=== PATIENT | female | born 1990 | race Two or more races ===

== ENCOUNTER 2019-03-07 18:14 | Emergency (ER) | payer SELFPAY ==
--- NOTE | 2019-03-07 18:56 | ER Document Report ---
ED Medical Screen (RME) - General Chief Complaint: Vaginal Pain Stated Complaint: VAGINAL DISCOMFORT Time Seen by Provider: 03/07/19 18:49 Notes: 28-year-old female with chief complaint of vaginal pain x4 days. She says that she has what she thinks is a cyst that runs from her labia down into the perineal area. She has no fevers or chills, no nausea or vomiting. She has associated dysuria and urinary frequency. She also has abnormal vaginal discharge described as white and "weird" smelling. No abdominal pain. I have greeted and performed a rapid initial assessment of this patient. A comprehensive ED assessment and evaluation of the patient, analysis of test results and completion of medical decision making process will be conducted by an additional ED providers. TRAVEL OUTSIDE OF THE [place] IN LAST 30 DAYS: No - Related Data Allergies/Adverse Reactions: No Known Allergies Allergy (Verified 03/07/19 18:15) Physical Exam - Vital signs Vitals: Temp Pulse Resp BP Pulse Ox 98.2 F 106 H 18 139/82 H 98 03/07/19 18:24 03/07/19 18:24 03/07/19 18:24 03/07/19 18:24 03/07/19 18:24 - Notes Notes: PHYSICAL EXAMINATION: Reviewed vital signs and charting by RN GENERAL: Alert, interacts well. No acute distress. HEAD: Normocephalic, atraumatic. EYES: Pupils equal and round. Extraocular movements intact. ENT: Oral mucosa moist, tongue midline. ABDOMEN: Deferred in triage : Deferred in triage EXTREMITIES: Moves all 4 extremities spontaneously. No edema, No cyanosis. PSYCH: Normal affect, normal mood. SKIN: Warm, dry, normal turgor. No rashes or lesions noted. Course - Vital Signs Vital signs: Temp Pulse Resp BP Pulse Ox 98.2 F 106 H 18 139/82 H 98 03/07/19 18:24 03/07/19 18:24 03/07/19 18:24 03/07/19 18:24 03/07/19 18:24
[2019-03-07] MEDS ORDERED: HYDROCODONE/ACETAMINOPHEN 5-325 MG TABLET PO ONE (20:05)
[2019-03-07 21:13] LABS: CHLAM PCR NOT DETECTED (NOT DETECT)
[2019-03-07] MEDS ORDERED: HYDROMORPHONE HCL INJ/PF 2 MG/ML AMPULE IM ONE (22:20)
[2019-03-07] MEDS ORDERED: LIDOCAINE 2% INJ (20 MG/ML) 20 ML MDV INJ ONE (22:21)
[2019-03-07] MEDS ORDERED: HYDROCODONE/ACETAMINOPHEN 5-325 MG (6 TAB/ER DISP) PO PRN (23:45)
[2019-03-07] MEDS ORDERED: CEPHALEXIN 500 MG CAPSULE PO ONE (23:45)
--- NOTE | 2019-03-07 23:51 | ER Document Report ---
ED General - General Chief Complaint: Vaginal Pain Stated Complaint: VAGINAL DISCOMFORT Time Seen by Provider: 03/07/19 18:49 Primary Care Provider: REED SUÁREZ MD [ACTIVE STAFF] - 03/09/19 Notes: Patient is a pleasant 28-year-old female presents with complaint of swelling in the vaginal area. She says started 3 days ago but has become worse and now the pain is intolerable. No fevers. No vomiting. No abnormal discharge. No abnormal vaginal bleeding. No other complaints at this time. TRAVEL OUTSIDE OF THE [place] IN LAST 30 DAYS: No - Related Data Allergies/Adverse Reactions: No Known Allergies Allergy (Verified 03/07/19 18:15) Past Medical History - Social History Smoking Status: Never Smoker Frequency of alcohol use: None Drug Abuse: None Family History: Reviewed & Not Pertinent Patient has suicidal ideation: No Patient has homicidal ideation: No Renal/ Medical History: Denies: Hx Peritoneal Dialysis Past Surgical History: Reports: Hx Cholecystectomy Review of Systems - Review of Systems Notes: My Normal Review Basic REVIEW OF SYSTEMS: CONSTITUTIONAL : Denies fever, chills, or sweats. Denies recent illness. GASTROINTESTINAL: Denies abdominal pain. Denies nausea, vomiting, or diarrhea. GENITOURINARY: Denies difficulty urinating, painful urination, burning, frequency, or blood in urine. FEMALE GENITOURINARY: Swelling to left vaginal labia SKIN: Denies rash or skin lesions. HEMATOLOGIC : Denies easy bruising or bleeding. ALL OTHER SYSTEMS REVIEWED AND NEGATIVE. Physical Exam - Vital signs Vitals: Temp Pulse Resp BP Pulse Ox 98.2 F 106 H 18 139/82 H 98 03/07/19 18:24 03/07/19 18:24 03/07/19 18:24 03/07/19 18:24 03/07/19 18:24 - Notes Notes: General Appearance: Well nourished, alert, cooperative, no acute distress, moderate to severe obvious discomfort. Vitals: reviewed, See vital signs table. Eyes: PERRL, EOMI, Conjuctiva clear Pelvic exam: Pelvic exam performed with Yaneth Handley, at bedside. Patient has some left labial swelling and does have a firm knot to palpation along the inside of the left labia minora consistent with Bartholin gland cyst. No spreading redness. No surrounding cellulitis. Skin: warm, dry, appropriate color, no rash Neuro: speech clear, oriented x 3, normal affect, responds appropriately to questions. Course - Re-evaluation Re-evalutation: 03/07/19 23:55 Patient's pain was intractable due to the bartholin galnd cyst. I therefore performed a small incision. I was able to drain fluid from the cyst and swelling went down and this provided patient some relief. The area is too small to pack at this time. I did inform the patient understands that this swelling will recur and that she needs [facility] and possible marsupialization if they feel that this is needed during her evaluation. I encouraged her return to ER immediately if she has spreading redness or swelling, fevers, or if she feels that she is worsening in any way. I informed her no sexual activity. Patient agrees with plan and will be discharged home. Dictation of this chart was performed using voice recognition software; therefore, there may be some unintended grammatical errors. - Vital Signs Vital signs: Temp Pulse Resp BP Pulse Ox 98.2 F 106 H 18 139/82 H 98 03/07/19 18:24 03/07/19 18:24 03/07/19 18:24 03/07/19 18:24 03/07/19 18:24 Procedures - Incision and Drainage left labia Type: Simple Anesthetic type: 1% Lidocaine mL's of anesthetic: 1 Blade size: 11 I&D procedure: Betadine prep applied Incision Method: Incision made by scalpel Amount/type of drainage: 1ml of blood tinged fluid Discharge - Discharge Clinical Impression: Bartholin gland cyst Condition: Good Disposition: HOME, SELF-CARE Additional Instructions: We have incised and drained the bartholin cyst. You still may need a procedure called marsupialization to make sure the bartholin gland does not occlude and swell again. Please follow up with the Internal Controls Analyst, Dr. Suárez, on Saturday for reevaluation and they will reevaluate you and determine if this needs to be performed. Please have a low threshold to return to the ER if you have fevers, increasing swelling, worsening pain, or feel that you are worsening in any way. I have given you a bottle of a medication called [place]. Please be aware that [place] does have Tylenol (acetaminophen) in it. Please make sure you do not take more than 4000 mg of acetaminophen a day. Do not drive or care for children after you have taken this medication they will make you sleepy and sometimes impair judgment. Prescriptions: Cephalexin Monohydrate [Keflex 500 mg Capsule] 500 mg PO Q6H 5 Days #28 capsule Hydrocodone/Acetaminophen [[place] 5-325 mg Tablet] 1 tab PO Q4 PRN #16 tablet PRN Reason: For Breakthrough Pain Forms: Return to Work Referrals: REED SUÁREZ MD [ACTIVE STAFF] - 03/09/19
[2019-03-08 00:35] VITALS: BP 122/73
== END 2019-03-08 00:39 | disposition home or self-care (01) ==
LOC: ER 18:14
DX: N75.0 Cyst of Bartholin's gland (principal)
CPT/HCPCS: 99283; 96372; 87491; 87591; 56420; J1170

== ENCOUNTER 2019-03-09 11:34 | Emergency (ER) | payer SELFPAY ==
[2019-03-09 12:04] VITALS: BP 108/67
[2019-03-09] MEDS ORDERED: OXYCODONE-ACETAMINOPHEN 5-325 MG TABLET PO ONE (14:38)
--- NOTE | 2019-03-09 14:39 | ER Document Report ---
ED Medical Screen (RME) - General Chief Complaint: Vaginal Pain Stated Complaint: POSSIBLE ABSCESS/VAGINAL Time Seen by Provider: 03/09/19 14:35 Notes: Patient is a 28-year-old female presents to the emergency department for pathology and gland cyst. Patient states she was here on 03/07/2019 to have the cyst drained. States today she is noticed more redness, more drainage and increased pain. Patient states she was given an antibiotic and hydrocodone which she states is not working. States last time she took the hydrocodone was around 830 this morning. Patient is denying any fevers. GENERAL: Alert, interacts well. Does appear to be in distress with grimace on her face. Genitalia exam deferred as patient is in triage. I have greeted and performed a rapid initial assessment of this patient. A comprehensive ED assessment and evaluation of the patient, analysis of test results and completion of the medical decision making process will be conducted by additional ED providers. I have specifically instructed the patient or family members with the patient to immediately return to any nursing staff should anything change in the patient's condition or with their chief complaint. This medical record was dictated with voice recognizing software. There may be grammatical, syntax errors that are unintended. TRAVEL OUTSIDE OF THE [place] IN LAST 30 DAYS: No - Related Data Allergies/Adverse Reactions: No Known Allergies Allergy (Verified 03/09/19 11:38) Past Medical History Renal/ Medical History: Denies: Hx Peritoneal Dialysis Past Surgical History: Reports: Hx Cholecystectomy Physical Exam - Vital signs Vitals: Temp Pulse Resp BP Pulse Ox 98.3 F 80 16 108/67 99 03/09/19 12:03 03/09/19 12:03 03/09/19 12:03 03/09/19 12:03 03/09/19 12:03 Course - Vital Signs Vital signs: Temp Pulse Resp BP Pulse Ox 98.3 F 80 16 108/67 99 03/09/19 12:03 03/09/19 12:03 03/09/19 12:03 03/09/19 12:03 03/09/19 12:03
== END 2019-03-09 16:33 | disposition left against medical advice (07) ==
LOC: ER 11:34
DX: R10.2 Pelvic and perineal pain (principal); Z79.899 Other long term (current) drug therapy
CPT/HCPCS: 99281

== ENCOUNTER → 2020-05-04 | Outpatient (CLI) | payer MEDICAID ==
[2020-05-04 10:20] LABS: ABSOLUTE EOSINOPHILS # (AUTO) 0.2 10^3/uL (0.0-0.6); ABSOLUTE LYMPHOCYTES (AUTO) 1.6 10^3/uL (0.5-4.7); ABSOLUTE MONOCYTES (AUTO) 0.5 10^3/uL (0.1-1.4); ABSOLUTE NEUT (AUTO) 3.3 10^3/uL (1.7-8.2); BASOPHILS % (AUTO) 0.5 % (0-2); EOSINOPHILS % (AUTO) 2.9 % (0-6); HEMATOCRIT 43.3 % (36.0-47.0); HEMOGLOBIN 14.8 g/dL (12.0-15.5); LYMPHOCYTES % (AUTO) 28.7 % (13-45); MEAN CORPUSCULAR HEMOGLOBIN 30.6 pg (27.0-33.4); MEAN CORPUSCULAR HGB CONC 34.3 g/dL (32.0-36.0); MEAN CORPUSCULAR VOLUME 89 fl (80-97); MONOCYTES % (AUTO) 9.7 % (3-13); PLATELET COUNT 241 10^3/uL (150-450); RED BLOOD COUNT 4.85 10^6/uL (3.72-5.28); RED CELL DISTRIBUTION WIDTH 12.7 % (11.5-14.0); SEGMENTED NEUTROPHILS % (AUTO) 58.2 % (42-78); TOTAL CELLS COUNTED % (AUTO) 100 %; WHITE BLOOD COUNT 5.7 10^3/uL (4.0-10.5)
[2020-05-04 10:47] LABS: ALBUMIN 4.7 g/dL (3.5-5.0); ALKALINE PHOSPHATASE 92 U/L (38-126); ANION GAP 9 (5-19); ASPARTATE AMINO TRANSFERASE 30 U/L (14-36); BILIRUBIN,TOTAL 0.9 mg/dL (0.2-1.3); BLOOD UREA NITROGEN 14 mg/dL (7-20); C-REACTIVE PROTEIN 5.3 mg/L (<10.0); CALCIUM 9.6 mg/dL (8.4-10.2); CARBON DIOXIDE 30 mmol/L (22-30); CHLORIDE 99 mmol/L (98-107); GLUCOSE 89 mg/dL (75-110); POTASSIUM 3.8 mmol/L (3.6-5.0); TOTAL PROTEIN 7.3 g/dL (6.3-8.2)
[2020-05-04 11:00] LABS: ERYTHROCYTE SEDIMENTATION RATE 11 mm/hr (0-20)
--- NOTE | 2020-05-05 09:42 | EKG REPORT ---
SEVERITY:- BORDERLINE ECG - SINUS RHYTHM PROBABLE LEFT ATRIAL ABNORMALITY : Confirmed by: Jasmin Peña 05-May-2020 09:42:02
== END ==
LOC: OD 09:32
PROVIDERS: ATTEND Nurse Practitioner Family
DX: R07.9 Chest pain, unspecified (principal); R53.83 Other fatigue; M32.9 Systemic lupus erythematosus, unspecified
CPT/HCPCS: 36415; 80053; 84443; 85025; 85652; 86140; 93005; 93010

== ENCOUNTER 2020-09-03 10:57 | Emergency (ER) | payer MEDICAID ==
--- NOTE | 2020-09-03 12:01 | ER Document Report ---
HPI - HPI Patient complains to provider of: Abscess Time Seen by Provider: 09/03/20 11:54 Onset: Yesterday Onset/Duration: Gradual Quality of pain: Achy Pain Level: 3 Context: Patient complains of abscess to the left labia that started to develop yesterday. Patient states area is tender to palpation. Patient denies any fever or drainage. Associated Symptoms: None Exacerbated by: Movement Relieved by: Denies Similar symptoms previously: Yes Recently seen / treated by doctor: No - ROS ROS below otherwise negative: Yes Systems Reviewed and Negative: Yes All other systems reviewed and negative - CONSTITUTIONAL Constitutional: DENIES: Fever, Chills - GASTROINTESTINAL Gastrointestinal: DENIES: Nausea, Patient vomiting - URINARY Urinary: DENIES: Dysuria - REPRODUCTIVE Reproductive: DENIES: : - MUSCULOSKELETAL Musculoskeletal: DENIES: Extremity pain - DERM Skin Color: Normal Notes: Painful lump to left labia Past Medical History - General Information source: Patient - Social History Smoking Status: Never Smoker Frequency of alcohol use: None Drug Abuse: None Occupation: Retail Lives with: Family Family History: Reviewed & Not Pertinent - Medical History Medical History: Other - Lupus Renal/ Medical History: Denies: Hx Peritoneal Dialysis Past Surgical History: Reports: Hx Cholecystectomy Vertical Provider Document - CONSTITUTIONAL Agree With Documented VS: Yes Exam Limitations: No Limitations General Appearance: WD/WN, No Apparent Distress - INFECTION CONTROL TRAVEL OUTSIDE OF THE [place] IN LAST 30 DAYS: No - HEENT HEENT: Atraumatic, Normocephalic - NECK Neck: Normal Inspection - RESPIRATORY Respiratory: Breath Sounds Normal, No Respiratory Distress - CARDIOVASCULAR Cardiovascular: Regular Rate, Regular Rhythm - REPRODUCTIVE Notes: Patient with a tender indurated area to the left Bartholin gland, no fluctuance, nothing that warrants drainage at this time. - BACK Back: Normal Inspection - MUSCULOSKELETAL/EXTREMETIES Musculoskeletal/Extremeties: MAEW - NEURO Level of Consciousness: Awake, Alert, Appropriate Motor/Sensory: No Motor Deficit - DERM Integumentary: Warm, Dry Course - Re-evaluation Re-evalutation: 09/03/20 12:26 Patient encouraged to use warm sitz bath's and to take antibiotics as prescribed. Patient encouraged to follow-up with a wharf tender for any persistent problems. Discussed worsening signs or symptoms that patient should return immediately for. Patient verbalized understanding and is agreeable discharge plan of care. - Vital Signs Vital signs: Temp Pulse Resp BP Pulse Ox 97.7 F 91 123/77 96 09/03/20 11:04 09/03/20 11:04 09/03/20 11:04 09/03/20 11:04 - Laboratory Results Critical Laboratory Results Reviewed: No Critical Results - Radiology Results Critical Radiology Results Reviewed: No Critical Results Discharge - Discharge Clinical Impression: Bartholin's gland infection Condition: Stable Disposition: HOME, SELF-CARE Instructions: Bartholin Gland Cyst or Abscess ([facility]), Trimethoprim-Sulfa ([facility]) Additional Instructions: Return immediately for any new or worsening symptoms Followup with your primary care provider, call tomorrow to make a followup appointment Use warm compresses or soak in warm water to help with resolution Prescriptions: Sulfamethoxazole/Trimethoprim [Bactrim Ds Tablet] 1 each PO BID #20 tablet Naproxen [Naprosyn 250 Nmg Tablet] 1 tab PO BID #14 tablet Forms: Return to Work Referrals: EARLE HERCULES NP [NO LOCAL MD] - Follow up as needed [facility] [Provider Group] - Follow up as needed
[2020-09-03] MEDS ORDERED: IBUPROFEN 800 MG TABLET PO ONE (12:32)
[2020-09-03] MEDS ORDERED: SULFAMETHOXAZOLE/TRIMETHOPRIM 800-160 MG TABLET PO ONE (12:32)
[2020-09-03 12:53] VITALS: BP 109/71
== END 2020-09-03 12:49 | disposition home or self-care (01) ==
LOC: ER 10:57
DX: N75.8 Other diseases of Bartholin's gland (principal)
CPT/HCPCS: 99283; J3490 ×2